=== PATIENT | male | born 1950 | race Caucasian/White ===

== ENCOUNTER 2019-01-15 06:37 | Day surgery (SDC) | payer OTHER ==
--- NOTE | 2019-01-14 15:09 | HP ---
CHIEF COMPLAINT: Major depressive disorder PCP: Dr. Concepcion Hawk, [facility] Primary psychiatrist: Dr. Singh Gallwoay, [facility] HISTORY OF PRESENT ILLNESS: 68 year-old male with a PMH significant for peripheral neuropathy, osteoporosis , umbilical hernia repair, and major depressive disorder. Patient first had ECT in 2010. He presents today for ECT. Recent event * none reported HOME MEDICATIONS: Home Medications Medication Instructions Recorded Aripiprazole [Abilify] 10 mg PO DAILY 01/14/19 Benztropine Mesylate [Cogentin -] 2 mg PO DAILY 01/14/19 Clonazepam 1 mg PO HS 01/14/19 Docusate Sodium [Colace] 100 - 300 mg PO HS PRN 01/14/19 Lamotrigine [Lamictal Xr] 50 mg PO HS 01/14/19 Lamotrigine [Lamictal Xr] 100 mg PO DAILY 01/14/19 Sennosides [Senna] 8.6 mg PO HS 01/14/19 REVIEW OF SYSTEMS CONSTITUTIONAL: Absent: fever, chills, diaphoresis, generalized weakness, malaise, loss of appetite, weight change HEENT: Absent: rhinorrhea, nasal congestion, throat pain, throat swelling, difficulty swallowing, mouth swelling, ear pain, eye pain, visual changes CARDIOVASCULAR: Absent: chest pain, syncope, palpitations, irregular heart rate, lightheadedness , peripheral edema RESPIRATORY: Absent: cough, shortness of breath, dyspnea with exertion, orthopnea, wheezing, stridor, hemoptysis GASTROINTESTINAL: Absent: abdominal pain, abdominal distension, nausea, vomiting, diarrhea, constipation, melena, hematochezia GENITOURINARY: Absent: dysuria, frequency, urgency, hesitancy, hematuria, flank pain, genital pain MUSCULOSKELETAL: Absent: myalgia, arthralgia, joint swelling, back pain, neck pain SKIN: Absent: rash, itching, pallor HEMATOLOGIC/IMMUNOLOGIC: Absent: easy bleeding, easy bruising, lymphadenopathy, frequent infections ENDOCRINE: Absent: unexplained weight gain, unexplained weight loss, heat intolerance, cold intolerance NEUROLOGIC: Absent: headache, focal weakness or paresthesias, dizziness, unsteady gait, seizure, mental status changes, bladder or bowel incontinence PHYSICAL EXAMINATION Vital Signs Temperature 98 F 01/15/19 06:49 Pulse Rate 47 L 01/15/19 06:49 Respiratory Rate 16 01/15/19 06:49 Blood Pressure 108/63 01/15/19 06:49 O2 Sat by Pulse Oximetry (%) 95 01/15/19 06:49 GENERAL: Awake, alert, and fully oriented, in no acute distress. HEAD: Normal with no signs of trauma. EYES: Pupils equal, round and reactive to light, sclera anicteric, conjunctiva clear. LUNGS: Breath sounds equal, clear to auscultation bilaterally. No wheezes, and no crackles. No accessory muscle use. HEART: Regular rate and rhythm, normal S1 and S2 ABDOMEN: Soft, nontender, not distended MUSCULOSKELETAL: Normal range of motion at all joints. No bony deformities or tenderness. No CVA tenderness. UPPER EXTREMITIES: 2+ pulses, warm, well-perfused. No cyanosis. No clubbing. No peripheral edema. LOWER EXTREMITIES: 2+ pulses, warm, well-perfused. No calf tenderness. No peripheral edema. NEUROLOGICAL: Cranial nerves II-XII intact. Normal speech. ASSESSMENT/PLAN: 68 year-old male with a PMH significant for peripheral neuropathy, osteoporosis , umbilical hernia repair, and major depressive disorder. Patient first had ECT in 2010. He presents today for ECT. Cardiac --no cardiac history --Revised Cardiac Risk Index for Pre-Operative Risk: 0 points, 0.4% risk of major cardiac event Pulmonary --no pulmonary history Neurological --no neurological or neurosurgical history; no history of trauma Anesthesia --no reported problems with anesthesia ECT is a low risk procedure. The relative benefits of the planned procedure outweigh the relative risks for this patient at this time. Visit type - Emergency Visit Emergency Visit: No - New Patient This patient is new to me today: Yes Date on this admission: 01/15/19 - Critical Care Critical Care patient: No
[2019-01-14 16:02] VITALS: BMI 29.0
[2019-01-15] MEDS ORDERED: ACETAMINOPHEN 325 MG TABLET (FP) PO PRN (08:03)
[2019-01-15] MEDS ORDERED: ONDANSETRON 4 MG/2 ML VIAL IVPUSH PRN (08:03)
[2019-01-15] MEDS ORDERED: LACTATED RINGERS SOLUTION 1,000 ML IV SCH (08:15)
[2019-01-15 08:57] VITALS: BP 110/66; PULSE 53; TEMP 98
== END 2019-01-15 08:55 | disposition home or self-care (01) ==
LOC: FECT 06:37
PROVIDERS: ATTEND Psychiatry & Neurology Psychiatry
PROC: GZB4ZZZ Other Electroconvulsive Therapy (ICD-10-PCS; principal; 2019-01-15 07:30)
DX: F33.2 Major depressive disorder, recurrent severe without psychotic features (principal); G62.9 Polyneuropathy, unspecified; M81.0 Age-related osteoporosis without current pathological fracture
CPT/HCPCS: 90870; 94760

== ENCOUNTER 2019-01-23 05:45 | Day surgery (SDC) | payer OTHER | END 2019-01-23 08:53 | disposition home or self-care (01) | LOC: FECT 05:45 | PROC: GZB4ZZZ Other Electroconvulsive Therapy (ICD-10-PCS; principal; 2019-01-23 07:45) | DX: F33.2 Major depressive disorder, recurrent severe without psychotic features (principal) ==

== ENCOUNTER 2019-01-27 06:37 | Day surgery (SDC) | payer OTHER | END 2019-01-27 09:20 | disposition home or self-care (01) | LOC: FECT 06:37 ==

== ENCOUNTER 2019-02-04 05:32 | Day surgery (SDC) | payer OTHER, BC ==
[2019-01-27 14:28] VITALS: BMI 29.0
[2019-02-04] MEDS ORDERED: LACTATED RINGERS SOLUTION 1,000 ML IV SCH (07:45)
[2019-02-04 08:34] VITALS: TEMP 97.7
[2019-02-04 08:52] VITALS: BP 101/68; PULSE 57
== END 2019-02-04 08:45 | disposition home or self-care (01) ==
LOC: FECT 05:32
PROVIDERS: ATTEND Psychiatry & Neurology Psychiatry
PROC: GZB4ZZZ Other Electroconvulsive Therapy (ICD-10-PCS; principal; 2019-02-04 07:30)
DX: F32.9 Major depressive disorder, single episode, unspecified (principal)
CPT/HCPCS: 90870; 94760

== ENCOUNTER 2019-02-10 05:42 | Day surgery (SDC) | payer OTHER, BC ==
[2019-02-04 16:20] VITALS: BMI 29.0
[2019-02-10] MEDS ORDERED: ONDANSETRON 4 MG/2 ML VIAL IVPUSH PRN (07:18)
[2019-02-10] MEDS ORDERED: oxyCODONE HCL 5 MG TABLET PO PRN (07:18)
[2019-02-10 08:55] VITALS: BP 110/77; PULSE 47; TEMP 98
== END 2019-02-10 09:00 | disposition home or self-care (01) ==
LOC: FECT 05:42
PROVIDERS: ATTEND Psychiatry & Neurology Psychiatry
PROC: GZB4ZZZ Other Electroconvulsive Therapy (ICD-10-PCS; principal; 2019-02-10 07:30)
DX: F32.9 Major depressive disorder, single episode, unspecified (principal)
CPT/HCPCS: 90870; 94760

== ENCOUNTER 2019-02-17 05:59 | Day surgery (SDC) | payer OTHER | END 2019-02-17 09:55 | disposition home or self-care (01) | LOC: FECT 05:59 ==

== ENCOUNTER 2019-02-25 05:42 | Day surgery (SDC) | payer OTHER ==
[2019-02-17 14:55] VITALS: BMI 29.0
[2019-02-25] MEDS ORDERED: ACETAMINOPHEN 325 MG TABLET (FP) PO PRN (07:44)
[2019-02-25] MEDS ORDERED: ONDANSETRON 4 MG/2 ML VIAL IVPUSH PRN (07:44)
[2019-02-25 08:33] VITALS: TEMP 97.6
[2019-02-25 08:49] VITALS: BP 110/68; PULSE 47
== END 2019-02-25 08:51 | disposition home or self-care (01) ==
LOC: FECT 05:42
PROVIDERS: ATTEND Psychiatry & Neurology Psychiatry
PROC: GZB4ZZZ Other Electroconvulsive Therapy (ICD-10-PCS; principal; 2019-02-25 07:45)
DX: F32.9 Major depressive disorder, single episode, unspecified (principal)
CPT/HCPCS: 90870; 94760

== ENCOUNTER 2019-03-12 05:41 | Day surgery (SDC) | payer OTHER, BC ==
[2019-03-05 11:24] VITALS: BMI 29.0
[2019-03-12 08:14] VITALS: TEMP 97.6
[2019-03-12 09:07] VITALS: BP 101/60; PULSE 55
== END 2019-03-12 08:20 | disposition home or self-care (01) ==
LOC: FECT 05:41
PROVIDERS: ATTEND Psychiatry & Neurology Psychiatry
PROC: GZB4ZZZ Other Electroconvulsive Therapy (ICD-10-PCS; principal; 2019-03-12 07:00)
DX: F32.9 Major depressive disorder, single episode, unspecified (principal)
CPT/HCPCS: 90870; 94760

== ENCOUNTER 2019-03-26 05:39 | Day surgery (SDC) | payer OTHER, BC ==
[2019-03-19 14:04] VITALS: BMI 29.0
[2019-03-26] MEDS ORDERED: LACTATED RINGERS SOLUTION 1,000 ML IV SCH (07:30)
[2019-03-26 09:04] VITALS: TEMP 97.6
[2019-03-26 09:34] VITALS: BP 112/67; PULSE 51
--- NOTE | 2019-03-26 18:07 | HP ---
CHIEF COMPLAINT: Major depressive disorder PCP: Dr. Concepcion Hawk, [facility] Primary psychiatrist: Dr. Singh Galloway, [facility] HISTORY OF PRESENT ILLNESS: 68 year-old male with a PMH significant for peripheral neuropathy, osteoporosis , umbilical hernia repair, and major depressive disorder. Patient first had ECT in 2010. He presents today for ECT. Recent events * none reported Allergies No Known Allergies Allergy (Verified 03/26/19 07:33) HOME MEDICATIONS: Home Medications Medication Instructions Recorded Aripiprazole [Abilify] 10 mg PO DAILY 01/14/19 Clonazepam 1 mg PO HS 01/14/19 Lamotrigine [Lamictal] 150 mg PO DAILY 03/26/19 REVIEW OF SYSTEMS CONSTITUTIONAL: Absent: fever, chills, diaphoresis, generalized weakness, malaise, loss of appetite, weight change HEENT: Absent: rhinorrhea, nasal congestion, throat pain, throat swelling, difficulty swallowing, mouth swelling, ear pain, eye pain, visual changes CARDIOVASCULAR: Absent: chest pain, syncope, palpitations, irregular heart rate, lightheadedness , peripheral edema RESPIRATORY: Absent: cough, shortness of breath, dyspnea with exertion, orthopnea, wheezing, stridor, hemoptysis GASTROINTESTINAL: Absent: abdominal pain, abdominal distension, nausea, vomiting, diarrhea, constipation, melena, hematochezia GENITOURINARY: Absent: dysuria, frequency, urgency, hesitancy, hematuria, flank pain, genital pain MUSCULOSKELETAL: Absent: myalgia, arthralgia, joint swelling, back pain, neck pain SKIN: Absent: rash, itching, pallor HEMATOLOGIC/IMMUNOLOGIC: Absent: easy bleeding, easy bruising, lymphadenopathy, frequent infections ENDOCRINE: Absent: unexplained weight gain, unexplained weight loss, heat intolerance, cold intolerance NEUROLOGIC: Absent: headache, focal weakness or paresthesias, dizziness, unsteady gait, seizure, mental status changes, bladder or bowel incontinence PHYSICAL EXAMINATION Vital Signs - 24 hr 03/26/19 03/26/19 03/26/19 07:35 08:31 08:35 Temperature 98.4 F Pulse Rate 46 L 52 L 42 L Respiratory 16 18 16 Rate Blood Pressure 103/68 148/52 L 95/46 L O2 Sat by Pulse 94 L 98 100 Oximetry (%) 08/01/19 08/01/19 08/01/19 08:40 08:45 08:50 Temperature Pulse Rate 48 L 46 L 42 L Respiratory 14 18 20 Rate Blood Pressure 93/50 L 94/52 L 102/74 O2 Sat by Pulse 95 95 97 Oximetry (%) 03/26/19 03/26/19 03/26/19 08:55 09:25 09:30 Temperature 97.6 F 97.6 F 97.6 F Pulse Rate 50 L 51 L 51 L Respiratory 18 18 18 Rate Blood Pressure 108/63 112/67 112/67 O2 Sat by Pulse 95 95 Oximetry (%) GENERAL: Awake, alert, and fully oriented, in no acute distress. HEAD: Normal with no signs of trauma. EYES: Pupils equal, round and reactive to light, sclera anicteric, conjunctiva clear. LUNGS: Breath sounds equal, clear to auscultation bilaterally. No wheezes, and no crackles. No accessory muscle use. HEART: Regular rate and rhythm, normal S1 and S2 ABDOMEN: Soft, nontender, not distended MUSCULOSKELETAL: Normal range of motion at all joints. No bony deformities or tenderness. No CVA tenderness. UPPER EXTREMITIES: 2+ pulses, warm, well-perfused. No cyanosis. No clubbing. No peripheral edema. LOWER EXTREMITIES: 2+ pulses, warm, well-perfused. No calf tenderness. No peripheral edema. NEUROLOGICAL: Cranial nerves II-XII intact. Normal speech. ASSESSMENT/PLAN: 68 year-old male with a PMH significant for peripheral neuropathy, osteoporosis , umbilical hernia repair, and major depressive disorder. He presents today for ECT. Cardiac --no cardiac history --Revised Cardiac Risk Index for Pre-Operative Risk: 0 points, 0.4% risk of major cardiac event Pulmonary --no pulmonary history Neurological --no neurological or neurosurgical history; no history of trauma Anesthesia --no reported problems with anesthesia ECT is a low risk procedure. The relative benefits of the planned procedure outweigh the relative risks for this patient at this time. Visit type - Emergency Visit Emergency Visit: No - New Patient This patient is new to me today: Yes Date on this admission: 03/26/19 - Critical Care Critical Care patient: No
== END 2019-03-26 09:30 | disposition home or self-care (01) ==
LOC: FECT 05:39
PROVIDERS: ATTEND Psychiatry & Neurology Psychiatry
PROC: GZB4ZZZ Other Electroconvulsive Therapy (ICD-10-PCS; principal; 2019-03-26 07:00)
DX: F32.9 Major depressive disorder, single episode, unspecified (principal)
CPT/HCPCS: 90870; 94760

== ENCOUNTER 2019-04-09 05:41 | Day surgery (SDC) | payer OTHER, BC | END 2019-04-09 08:21 | disposition home or self-care (01) | LOC: FECT 05:41 ==

== ENCOUNTER 2019-05-07 05:43 | Day surgery (SDC) | payer OTHER, BC ==
[2019-05-07 07:06] VITALS: TEMP 98.4; BMI 29.0
--- NOTE | 2019-05-07 07:40 | HP ---
CHIEF COMPLAINT: Major depressive disorder PCP: Dr. Concepcion Hawk, [facility] Primary psychiatrist: Dr. Singh Galloway, [facility] HISTORY OF PRESENT ILLNESS: 68 year-old male with a PMH significant for peripheral neuropathy, osteoporosis , umbilical hernia repair, and major depressive disorder. Patient first had ECT in 2010. He presents today for ECT. Recent events * none reported Allergies No Known Allergies Allergy (Verified 03/26/19 07:33) HOME MEDICATIONS: Home Medications Medication Instructions Recorded Aripiprazole [Abilify] 10 mg PO DAILY 01/14/19 Clonazepam 1 mg PO HS 01/14/19 Lamotrigine [Lamictal] 75 mg PO DAILY 03/26/19 REVIEW OF SYSTEMS CONSTITUTIONAL: Absent: fever, chills, diaphoresis, generalized weakness, malaise, loss of appetite, weight change HEENT: Absent: rhinorrhea, nasal congestion, throat pain, throat swelling, difficulty swallowing, mouth swelling, ear pain, eye pain, visual changes CARDIOVASCULAR: Absent: chest pain, syncope, palpitations, irregular heart rate, lightheadedness , peripheral edema RESPIRATORY: Absent: cough, shortness of breath, dyspnea with exertion, orthopnea, wheezing, stridor, hemoptysis GASTROINTESTINAL: Absent: abdominal pain, abdominal distension, nausea, vomiting, diarrhea, constipation, melena, hematochezia GENITOURINARY: Absent: dysuria, frequency, urgency, hesitancy, hematuria, flank pain, genital pain MUSCULOSKELETAL: Absent: myalgia, arthralgia, joint swelling, back pain, neck pain SKIN: Absent: rash, itching, pallor HEMATOLOGIC/IMMUNOLOGIC: Absent: easy bleeding, easy bruising, lymphadenopathy, frequent infections ENDOCRINE: Absent: unexplained weight gain, unexplained weight loss, heat intolerance, cold intolerance NEUROLOGIC: Absent: headache, focal weakness or paresthesias, dizziness, unsteady gait, seizure, mental status changes, bladder or bowel incontinence PHYSICAL EXAMINATION Vital Signs - 24 hr 05/07/19 07:00 Temperature 98.4 F Pulse Rate 46 L Respiratory 18 Rate Blood Pressure 101/60 O2 Sat by Pulse 99 Oximetry (%) GENERAL: Awake, alert, and fully oriented, in no acute distress. HEAD: Normal with no signs of trauma. EYES: Pupils equal, round and reactive to light, sclera anicteric, conjunctiva clear. LUNGS: Breath sounds equal, clear to auscultation bilaterally. No wheezes, and no crackles. No accessory muscle use. HEART: Regular rate and rhythm, normal S1 and S2 ABDOMEN: Soft, nontender, not distended MUSCULOSKELETAL: Normal range of motion at all joints. No bony deformities or tenderness. No CVA tenderness. UPPER EXTREMITIES: 2+ pulses, warm, well-perfused. No cyanosis. No clubbing. No peripheral edema. LOWER EXTREMITIES: 2+ pulses, warm, well-perfused. No calf tenderness. No peripheral edema. NEUROLOGICAL: Cranial nerves II-XII intact. Normal speech. ASSESSMENT/PLAN: 68 year-old male with a PMH significant for peripheral neuropathy, osteoporosis , umbilical hernia repair, and major depressive disorder. He presents today for ECT. Cardiac --no cardiac history --Revised Cardiac Risk Index for Pre-Operative Risk: 0 points, 0.4% risk of major cardiac event Pulmonary --no pulmonary history Neurological --no neurological or neurosurgical history; no history of trauma Anesthesia --no reported problems with anesthesia ECT is a low risk procedure. The relative benefits of the planned procedure outweigh the relative risks for this patient at this time. Visit type - Emergency Visit Emergency Visit: No - New Patient This patient is new to me today: Yes Date on this admission: 05/07/19 - Critical Care Critical Care patient: No
[2019-05-07 09:01] VITALS: BP 106/56; PULSE 50
== END 2019-05-07 09:05 | disposition home or self-care (01) ==
LOC: FECT 05:43
PROVIDERS: ATTEND Psychiatry & Neurology Psychiatry
PROC: GZB4ZZZ Other Electroconvulsive Therapy (ICD-10-PCS; principal; 2019-05-07 07:00)
DX: F32.9 Major depressive disorder, single episode, unspecified (principal)
CPT/HCPCS: 90870; 94760

== ENCOUNTER 2019-05-28 05:43 | Day surgery (SDC) | payer OTHER, BC ==
[2019-05-28 06:35] VITALS: BMI 29.0
[2019-05-28 08:51] VITALS: TEMP 97.7
[2019-05-28 08:52] VITALS: BP 102/61; PULSE 53
[2019-05-28] MEDS ORDERED: ACETAMINOPHEN 325 MG TABLET (FP) PO PRN (08:57)
[2019-05-28] MEDS ORDERED: ONDANSETRON 4 MG/2 ML VIAL IVPUSH PRN (08:57)
== END 2019-05-28 08:55 | disposition home or self-care (01) ==
LOC: FECT 05:43
PROVIDERS: ATTEND Psychiatry & Neurology Psychiatry
PROC: GZB4ZZZ Other Electroconvulsive Therapy (ICD-10-PCS; principal; 2019-05-28 07:30)
DX: F32.9 Major depressive disorder, single episode, unspecified (principal)
CPT/HCPCS: 90870; 94760

== ENCOUNTER 2019-06-02 05:49 | Day surgery (SDC) | payer OTHER, BC ==
[2019-05-28 10:47] VITALS: BMI 29.0
[2019-06-02] MEDS ORDERED: oxyCODONE HCL 5 MG TABLET PO PRN (06:45)
[2019-06-02] MEDS ORDERED: ACETAMINOPHEN 325 MG TABLET (FP) PO PRN (06:45)
[2019-06-02 08:51] VITALS: TEMP 97.9
[2019-06-02 08:59] VITALS: BP 102/66; PULSE 51
== END 2019-06-02 09:00 | disposition home or self-care (01) ==
LOC: FECT 05:49
PROVIDERS: ATTEND Psychiatry & Neurology Psychiatry
PROC: GZB4ZZZ Other Electroconvulsive Therapy (ICD-10-PCS; principal; 2019-06-02 07:30)
DX: F33.2 Major depressive disorder, recurrent severe without psychotic features (principal)
CPT/HCPCS: 90870

== ENCOUNTER 2019-06-10 05:44 | Day surgery (SDC) | payer OTHER, BC ==
[2019-05-28 10:51] VITALS: BMI 29.0
--- NOTE | 2019-06-10 07:30 | HP ---
CHIEF COMPLAINT: Major depressive disorder PCP: Dr. Concepcion Hawk, [facility] Primary psychiatrist: Dr. Singh Galloway, [facility] HISTORY OF PRESENT ILLNESS: 68 year-old male with a PMH significant for peripheral neuropathy, osteoporosis , umbilical hernia repair, and major depressive disorder. Patient first had ECT in 2010. He presents today for ECT. Recent events * Had a stem cell injection into his spine/buttocks (?) for neuropathy by Dr. Sebastian, [place]; completed a course of PO antibiotics following procedure; no apparent complications PAST MEDICAL HISTORY: Peripheral neuropathy Osteoporosis Major depressive disorder PAST SURGICAL HISTORY: Umbilical hernia repair Allergies No Known Allergies Allergy (Verified 05/28/19 10:43) HOME MEDICATIONS: Home Medications Medication Instructions Recorded Aripiprazole [Abilify] 10 mg PO DAILY 01/14/19 Clonazepam 1 mg PO HS 01/14/19 Lamotrigine [Lamictal] 75 mg PO DAILY 03/26/19 REVIEW OF SYSTEMS CONSTITUTIONAL: Absent: fever, chills, diaphoresis, generalized weakness, malaise, loss of appetite, weight change HEENT: Absent: rhinorrhea, nasal congestion, throat pain, throat swelling, difficulty swallowing, mouth swelling, ear pain, eye pain, visual changes CARDIOVASCULAR: Absent: chest pain, syncope, palpitations, irregular heart rate, lightheadedness , peripheral edema RESPIRATORY: Absent: cough, shortness of breath, dyspnea with exertion, orthopnea, wheezing, stridor, hemoptysis GASTROINTESTINAL: Absent: abdominal pain, abdominal distension, nausea, vomiting, diarrhea, constipation, melena, hematochezia GENITOURINARY: Absent: dysuria, frequency, urgency, hesitancy, hematuria, flank pain, genital pain MUSCULOSKELETAL: Absent: myalgia, arthralgia, joint swelling, back pain, neck pain SKIN: Absent: rash, itching, pallor HEMATOLOGIC/IMMUNOLOGIC: Absent: easy bleeding, easy bruising, lymphadenopathy, frequent infections ENDOCRINE: Absent: unexplained weight gain, unexplained weight loss, heat intolerance, cold intolerance NEUROLOGIC: Absent: headache, focal weakness or paresthesias, dizziness, unsteady gait, seizure, mental status changes, bladder or bowel incontinence PHYSICAL EXAMINATION Vital Signs - 24 hr 06/10/19 07:02 Temperature 98.1 F Pulse Rate 48 L Respiratory 18 Rate Blood Pressure 97/58 L O2 Sat by Pulse 98 Oximetry (%) GENERAL: Awake, alert, and fully oriented, in no acute distress. HEAD: Normal with no signs of trauma. EYES: Pupils equal, round and reactive to light, sclera anicteric, conjunctiva clear. LUNGS: Breath sounds equal, clear to auscultation bilaterally. No wheezes, and no crackles. No accessory muscle use. HEART: Regular rate and rhythm, normal S1 and S2 ABDOMEN: Soft, nontender, not distended MUSCULOSKELETAL: Normal range of motion at all joints. No bony deformities or tenderness. No CVA tenderness. UPPER EXTREMITIES: 2+ pulses, warm, well-perfused. No cyanosis. No clubbing. No peripheral edema. LOWER EXTREMITIES: 2+ pulses, warm, well-perfused. No calf tenderness. No peripheral edema. NEUROLOGICAL: Cranial nerves II-XII intact. Normal speech. ASSESSMENT/PLAN: 68 year-old male with a PMH significant for peripheral neuropathy, osteoporosis , umbilical hernia repair, and major depressive disorder. He presents today for ECT. Cardiac --no cardiac history --Revised Cardiac Risk Index for Pre-Operative Risk: 0 points, 0.4% risk of major cardiac event Pulmonary --no pulmonary history Neurological --no neurological or neurosurgical history; no history of trauma Anesthesia --no reported problems with anesthesia ECT is a low risk procedure. The relative benefits of the planned procedure outweigh the relative risks for this patient at this time. Visit type - Emergency Visit Emergency Visit: No - New Patient This patient is new to me today: Yes Date on this admission: 06/10/19 - Critical Care Critical Care patient: No
[2019-06-10 09:17] VITALS: BP 119/78; PULSE 55; TEMP 98
[2019-06-10 09:17] LABS: BASO % 0.8 % (0-2.0); EOS % 1.9 % (0-4.5); HEMATOCRIT 40.5 % (35.4-49); HEMOGLOBIN 13.2 GM/dl (11.7-16.9); LYMPH % 21.3 % (8-40); MCH 29.4 pg (25.7-33.7); MCHC 32.6 g/dl (32.0-35.9); MEAN PLT VOLUME 8.3 fl (7.5-11.1); MONO % 8.6 % (3.8-10.2); NEUT % 67.4 % (42.8-82.8); PLATELET COUNT 277 K/MM3 (134-434); RDW 15.3 % (11.9-15.9)
[2019-06-10 09:25] LABS: ALBUMIN 3.3 g/dl (3.4-5.0); BILIRUBIN,TOTAL 0.7 mg/dl (0.2-1); CALCIUM 8.9 mg/dl (8.5-10); CREATININE 0.8 mg/dl (0.55-1.3); POTASSIUM 4.2 mmol/L (3.5-5.1); TOT PROT 5.3 g/dl (6.4-8.2)
--- NOTE | 2019-06-10 10:39 | EKG ---
Test Reason : Blood Pressure : / mmHG Vent. Rate : 051 BPM Atrial Rate : 051 BPM P-R Int : 158 ms QRS Dur : 078 ms QT Int : 430 ms P-R-T Axes : 013 013 006 degrees QTc Int : 396 ms SINUS BRADYCARDIA CANNOT RULE OUT ANTERIOR INFARCT , AGE UNDETERMINED ABNORMAL ECG NO PREVIOUS ECGS AVAILABLE Confirmed by RENATE BLEVINS, IRAM ([id number]) on 06/10/2019 10:38:43 AM Referred By: Nick Brush Confirmed By:IRAM DEWITT MD
== END 2019-06-10 09:20 | disposition home or self-care (01) ==
LOC: FECT 05:44
PROVIDERS: ATTEND Psychiatry & Neurology Psychiatry
PROC: GZB4ZZZ Other Electroconvulsive Therapy (ICD-10-PCS; principal; 2019-06-10 07:15)
DX: F32.9 Major depressive disorder, single episode, unspecified (principal)
CPT/HCPCS: 36415; 80053; 85025; 90870; 93005; 94760

== ENCOUNTER 2019-06-12 05:50 | Day surgery (SDC) | payer OTHER, BC ==
[2019-06-12 06:52] VITALS: BMI 29.0
[2019-06-12] MEDS ORDERED: ONDANSETRON 4 MG/2 ML VIAL IVPUSH PRN (07:37)
[2019-06-12] MEDS ORDERED: PROMETHAZINE HCL 25 MG/1 ML VIAL IVPUSH PRN (07:37)
[2019-06-12] MEDS ORDERED: ACETAMINOPHEN 500 MG TABLET (FP) PO PRN (07:37)
[2019-06-12] MEDS ORDERED: LACTATED RINGERS SOLUTION 1,000 ML IV SCH (07:45)
[2019-06-12 09:34] VITALS: TEMP 98.2
[2019-06-12 09:37] VITALS: BP 110/56; PULSE 64
== END 2019-06-12 09:00 | disposition home or self-care (01) ==
LOC: FECT 05:50
PROVIDERS: ATTEND Psychiatry & Neurology Psychiatry
PROC: GZB4ZZZ Other Electroconvulsive Therapy (ICD-10-PCS; principal; 2019-06-12 07:15)
DX: F32.9 Major depressive disorder, single episode, unspecified (principal)
CPT/HCPCS: 90870; 94760

== ENCOUNTER 2019-06-17 06:28 | Day surgery (SDC) | payer OTHER, BC ==
[2019-06-12 12:39] VITALS: BMI 29.0
[2019-06-17 08:20] VITALS: TEMP 97.6
[2019-06-17 08:43] VITALS: BP 110/61; PULSE 53
== END 2019-06-17 08:45 | disposition home or self-care (01) ==
LOC: FECT 06:28
PROVIDERS: ATTEND Psychiatry & Neurology Psychiatry
PROC: GZB4ZZZ Other Electroconvulsive Therapy (ICD-10-PCS; principal; 2019-06-17 07:15)
DX: F32.9 Major depressive disorder, single episode, unspecified (principal)
CPT/HCPCS: 90870; 94760

== ENCOUNTER 2019-06-19 05:37 | Day surgery (SDC) | payer OTHER, BC ==
[2019-06-18 08:02] VITALS: BMI 29.0
[2019-06-19 07:58] VITALS: TEMP 97.8
[2019-06-19 08:19] VITALS: BP 110/65; PULSE 50
== END 2019-06-19 08:20 | disposition home or self-care (01) ==
LOC: FECT 05:37
PROVIDERS: ATTEND Psychiatry & Neurology Psychiatry
PROC: GZB4ZZZ Other Electroconvulsive Therapy (ICD-10-PCS; principal; 2019-06-19 07:15)
DX: F33.2 Major depressive disorder, recurrent severe without psychotic features (principal)
CPT/HCPCS: 90870; 94760

== ENCOUNTER 2019-06-24 05:47 | Day surgery (SDC) | payer OTHER, BC ==
[2019-06-19 08:57] VITALS: BMI 29.0
[2019-06-24] MEDS ORDERED: ACETAMINOPHEN 500 MG TABLET (FP) PO PRN (08:00)
[2019-06-24] MEDS ORDERED: LACTATED RINGERS SOLUTION 1,000 ML IV SCH (08:00)
[2019-06-24] MEDS ORDERED: PROMETHAZINE HCL 25 MG/1 ML VIAL IVPUSH PRN (08:00)
[2019-06-24 08:05] VITALS: TEMP 96.5
[2019-06-24 08:53] VITALS: BP 108/64; PULSE 55
== END 2019-06-24 08:57 | disposition home or self-care (01) ==
LOC: FECT 05:47
PROVIDERS: ATTEND Psychiatry & Neurology Psychiatry
PROC: GZB4ZZZ Other Electroconvulsive Therapy (ICD-10-PCS; principal; 2019-06-24 07:30)
DX: F32.9 Major depressive disorder, single episode, unspecified (principal)
CPT/HCPCS: 90870; 94760

== ENCOUNTER 2019-07-03 05:39 | Day surgery (SDC) | payer OTHER, BC ==
[2019-07-03 06:33] VITALS: BMI 29.0
[2019-07-03] MEDS ORDERED: LACTATED RINGERS SOLUTION 1,000 ML IV SCH (08:00)
[2019-07-03 08:30] VITALS: BP 90/57; PULSE 55; TEMP 97.9
== END 2019-07-03 08:34 | disposition home or self-care (01) ==
LOC: FECT 05:39
PROVIDERS: ATTEND Psychiatry & Neurology Psychiatry
PROC: GZB4ZZZ Other Electroconvulsive Therapy (ICD-10-PCS; principal; 2019-07-03 07:45)
DX: F33.2 Major depressive disorder, recurrent severe without psychotic features (principal)
CPT/HCPCS: 90870; 94760

== ENCOUNTER 2019-07-10 05:31 | Day surgery (SDC) | payer OTHER, BC ==
[2019-07-10 06:46] VITALS: BMI 30.5
[2019-07-10 08:20] VITALS: BP 109/62; PULSE 55; TEMP 98.1
--- NOTE | 2019-07-10 09:05 | HP ---
CHIEF COMPLAINT: Major depressive disorder PCP: Dr. Concepcion Hawk, [facility] Primary psychiatrist: Dr. Singh Galloway, [facility] HISTORY OF PRESENT ILLNESS: 68 year-old male with a PMH significant for peripheral neuropathy, osteoporosis , umbilical hernia repair, and major depressive disorder. Patient first had ECT in 2010. He presents today for ECT. Recent events * None reported PAST MEDICAL HISTORY: Peripheral neuropathy Osteoporosis Major depressive disorder PAST SURGICAL HISTORY: Umbilical hernia repair Allergies No Known Allergies Allergy (Verified 05/28/19 10:43) Allergies No Known Allergies Allergy (Verified 06/19/19 08:39) HOME MEDICATIONS: Home Medications Medication Instructions Recorded Aripiprazole [Abilify] 10 mg PO DAILY 01/14/19 Clonazepam 1 mg PO HS 01/14/19 Lamotrigine [Lamictal] 75 mg PO DAILY 03/26/19 REVIEW OF SYSTEMS CONSTITUTIONAL: Absent: fever, chills, diaphoresis, generalized weakness, malaise, loss of appetite, weight change HEENT: Absent: rhinorrhea, nasal congestion, throat pain, throat swelling, difficulty swallowing, mouth swelling, ear pain, eye pain, visual changes CARDIOVASCULAR: Absent: chest pain, syncope, palpitations, irregular heart rate, lightheadedness , peripheral edema RESPIRATORY: Absent: cough, shortness of breath, dyspnea with exertion, orthopnea, wheezing, stridor, hemoptysis GASTROINTESTINAL: Absent: abdominal pain, abdominal distension, nausea, vomiting, diarrhea, constipation, melena, hematochezia GENITOURINARY: Absent: dysuria, frequency, urgency, hesitancy, hematuria, flank pain, genital pain MUSCULOSKELETAL: Absent: myalgia, arthralgia, joint swelling, back pain, neck pain SKIN: Absent: rash, itching, pallor HEMATOLOGIC/IMMUNOLOGIC: Absent: easy bleeding, easy bruising, lymphadenopathy, frequent infections ENDOCRINE: Absent: unexplained weight gain, unexplained weight loss, heat intolerance, cold intolerance NEUROLOGIC: Absent: headache, focal weakness or paresthesias, dizziness, unsteady gait, seizure, mental status changes, bladder or bowel incontinence PHYSICAL EXAMINATION Vital Signs - 24 hr 07/10/19 07/10/19 07/10/19 07:30 07:45 08:15 Temperature 97.7 F 97.8 F 98.1 F Pulse Rate 55 L 51 L 55 L Respiratory 16 16 16 Rate Blood Pressure 106/49 L 106/61 109/62 O2 Sat by Pulse 99 98 99 Oximetry (%) 07/10/19 08:32 Temperature 98.1 F Pulse Rate 55 L Respiratory 16 Rate Blood Pressure 109/62 O2 Sat by Pulse Oximetry (%) GENERAL: Awake, alert, and fully oriented, in no acute distress. HEAD: Normal with no signs of trauma. EYES: Pupils equal, round and reactive to light, sclera anicteric, conjunctiva clear. LUNGS: Breath sounds equal, clear to auscultation bilaterally. No wheezes, and no crackles. No accessory muscle use. HEART: Regular rate and rhythm, normal S1 and S2 ABDOMEN: Soft, nontender, not distended MUSCULOSKELETAL: Normal range of motion at all joints. No bony deformities or tenderness. No CVA tenderness. UPPER EXTREMITIES: 2+ pulses, warm, well-perfused. No cyanosis. No clubbing. No peripheral edema. LOWER EXTREMITIES: 2+ pulses, warm, well-perfused. No calf tenderness. No peripheral edema. NEUROLOGICAL: Cranial nerves II-XII intact. Normal speech. ASSESSMENT/PLAN: 68 year-old male with a PMH significant for peripheral neuropathy, osteoporosis , umbilical hernia repair, and major depressive disorder. He presents today for ECT. Cardiac --no cardiac history --Revised Cardiac Risk Index for Pre-Operative Risk: 0 points, 0.4% risk of major cardiac event Pulmonary --no pulmonary history Neurological --no neurological or neurosurgical history; no history of trauma Anesthesia --no reported problems with anesthesia ECT is a low risk procedure. The relative benefits of the planned procedure outweigh the relative risks for this patient at this time. Visit type - Emergency Visit Emergency Visit: No - New Patient This patient is new to me today: Yes Date on this admission: 07/10/19 - Critical Care Critical Care patient: No
== END 2019-07-10 08:34 | disposition home or self-care (01) ==
LOC: FECT 05:31
PROVIDERS: ATTEND Psychiatry & Neurology Psychiatry
PROC: GZB4ZZZ Other Electroconvulsive Therapy (ICD-10-PCS; principal; 2019-07-10 08:00)
DX: F32.9 Major depressive disorder, single episode, unspecified (principal)
CPT/HCPCS: 90870; 94760

== ENCOUNTER 2019-07-17 05:46 | Day surgery (SDC) | payer OTHER, BC ==
[2019-07-13 09:08] VITALS: BMI 30.5
[2019-07-17 10:10] VITALS: TEMP 98
[2019-07-17 10:15] VITALS: BP 108/65; PULSE 49
== END 2019-07-17 10:20 | disposition home or self-care (01) ==
LOC: FECT 05:46
PROVIDERS: ATTEND Psychiatry & Neurology Psychiatry
PROC: GZB4ZZZ Other Electroconvulsive Therapy (ICD-10-PCS; principal; 2019-07-17 08:15)
DX: F33.2 Major depressive disorder, recurrent severe without psychotic features (principal)
CPT/HCPCS: 90870; 94760

== ENCOUNTER 2019-07-22 05:52 | Day surgery (SDC) | payer OTHER, BC ==
[2019-07-22 07:06] VITALS: TEMP 97.5; BMI 30.5
[2019-07-22 08:56] VITALS: BP 106/63; PULSE 54
== END 2019-07-22 09:00 | disposition home or self-care (01) ==
LOC: FECT 05:52
PROVIDERS: ATTEND Psychiatry & Neurology Psychiatry
PROC: GZB4ZZZ Other Electroconvulsive Therapy (ICD-10-PCS; principal; 2019-07-22 08:30)
DX: F33.2 Major depressive disorder, recurrent severe without psychotic features (principal)
CPT/HCPCS: 90870; 94760

== ENCOUNTER 2019-07-29 05:40 | Day surgery (SDC) | payer OTHER, BC ==
[2019-07-29 06:47] VITALS: TEMP 98; BMI 30.5
[2019-07-29 08:52] VITALS: BP 128/62; PULSE 57
== END 2019-07-29 08:50 | disposition home or self-care (01) ==
LOC: FECT 05:40
PROVIDERS: ATTEND Psychiatry & Neurology Psychiatry
PROC: GZB4ZZZ Other Electroconvulsive Therapy (ICD-10-PCS; principal; 2019-07-29 07:15)
DX: F32.9 Major depressive disorder, single episode, unspecified (principal)
CPT/HCPCS: 90870; 94760

== ENCOUNTER 2019-08-05 05:46 | Day surgery (SDC) | payer OTHER, BC ==
[2019-08-05 06:54] VITALS: TEMP 97.7; BMI 30.5
[2019-08-05] MEDS ORDERED: ACETAMINOPHEN 325 MG TABLET (FP) PO PRN (08:12)
[2019-08-05] MEDS ORDERED: ONDANSETRON 4 MG/2 ML VIAL IVPUSH PRN (08:12)
[2019-08-05] MEDS ORDERED: LACTATED RINGERS SOLUTION 1,000 ML IV SCH (08:15)
[2019-08-05 09:12] VITALS: BP 108/61; PULSE 53
== END 2019-08-05 09:32 | disposition home or self-care (01) ==
LOC: FECT 05:46
PROVIDERS: ATTEND Psychiatry & Neurology Psychiatry
PROC: GZB4ZZZ Other Electroconvulsive Therapy (ICD-10-PCS; principal; 2019-08-05 07:00)
DX: F32.9 Major depressive disorder, single episode, unspecified (principal)
CPT/HCPCS: 90870; 94760

== ENCOUNTER 2019-08-12 06:42 | Day surgery (SDC) | payer OTHER, BC ==
[2019-08-12 06:56] VITALS: BMI 30.5
[2019-08-12] MEDS ORDERED: LACTATED RINGERS SOLUTION 1,000 ML IV SCH (07:00)
[2019-08-12 08:47] VITALS: TEMP 97.8
[2019-08-12 09:04] VITALS: BP 104/67; PULSE 62
--- NOTE | 2019-08-12 15:05 | HP ---
CHIEF COMPLAINT: Major depressive disorder PCP: Dr. Concepcion Hawk, [facility] Primary psychiatrist: Dr. Singh Galloway, [facility] HISTORY OF PRESENT ILLNESS: 68 year-old male with a PMH significant for peripheral neuropathy, osteoporosis , umbilical hernia repair, and major depressive disorder. Patient first had ECT in 2010. He presents today for ECT. Recent events * None reported PAST MEDICAL HISTORY: Peripheral neuropathy Osteoporosis Major depressive disorder PAST SURGICAL HISTORY: Umbilical hernia repair Allergies No Known Allergies Allergy (Verified 06/19/19 08:39) HOME MEDICATIONS: Home Medications Medication Instructions Recorded Aripiprazole [Abilify] 10 mg PO DAILY 01/14/19 Clonazepam 1 mg PO HS 01/14/19 Lamotrigine [Lamictal] 75 mg PO DAILY 03/26/19 REVIEW OF SYSTEMS CONSTITUTIONAL: Absent: fever, chills, diaphoresis, generalized weakness, malaise, loss of appetite, weight change HEENT: Absent: rhinorrhea, nasal congestion, throat pain, throat swelling, difficulty swallowing, mouth swelling, ear pain, eye pain, visual changes CARDIOVASCULAR: Absent: chest pain, syncope, palpitations, irregular heart rate, lightheadedness , peripheral edema RESPIRATORY: Absent: cough, shortness of breath, dyspnea with exertion, orthopnea, wheezing, stridor, hemoptysis GASTROINTESTINAL: Absent: abdominal pain, abdominal distension, nausea, vomiting, diarrhea, constipation, melena, hematochezia GENITOURINARY: Absent: dysuria, frequency, urgency, hesitancy, hematuria, flank pain, genital pain MUSCULOSKELETAL: Absent: myalgia, arthralgia, joint swelling, back pain, neck pain SKIN: Absent: rash, itching, pallor HEMATOLOGIC/IMMUNOLOGIC: Absent: easy bleeding, easy bruising, lymphadenopathy, frequent infections ENDOCRINE: Absent: unexplained weight gain, unexplained weight loss, heat intolerance, cold intolerance NEUROLOGIC: Absent: headache, focal weakness or paresthesias, dizziness, unsteady gait, seizure, mental status changes, bladder or bowel incontinence PHYSICAL EXAMINATION Vital Signs - 24 hr 08/12/19 08/12/19 08/12/19 06:54 07:55 08:00 Temperature 97.7 F Pulse Rate 56 L 75 49 L Respiratory 18 16 13 Rate Blood Pressure 109/61 100/62 105/49 L O2 Sat by Pulse 96 100 98 Oximetry (%) 08/12/19 08/12/19 08/12/19 08:05 08:10 08:15 Temperature Pulse Rate 54 L 47 L 56 L Respiratory 17 17 16 Rate Blood Pressure 109/61 107/66 105/62 O2 Sat by Pulse 98 98 98 Oximetry (%) 08/12/19 08/12/19 08/12/19 08:34 09:03 09:05 Temperature 97.8 F 97.8 F Pulse Rate 52 L 62 62 Respiratory 18 18 18 Rate Blood Pressure 94/50 L 104/67 104/67 O2 Sat by Pulse 96 96 Oximetry (%) GENERAL: Awake, alert, and fully oriented, in no acute distress. HEAD: Normal with no signs of trauma. EYES: Pupils equal, round and reactive to light, sclera anicteric, conjunctiva clear. LUNGS: Breath sounds equal, clear to auscultation bilaterally. No wheezes, and no crackles. No accessory muscle use. HEART: Regular rate and rhythm, normal S1 and S2 ABDOMEN: Soft, nontender, not distended MUSCULOSKELETAL: Normal range of motion at all joints. No bony deformities or tenderness. No CVA tenderness. UPPER EXTREMITIES: 2+ pulses, warm, well-perfused. No cyanosis. No clubbing. No peripheral edema. LOWER EXTREMITIES: 2+ pulses, warm, well-perfused. No calf tenderness. No peripheral edema. NEUROLOGICAL: Cranial nerves II-XII intact. Normal speech. ASSESSMENT/PLAN: 68 year-old male with a PMH significant for peripheral neuropathy, osteoporosis , umbilical hernia repair, and major depressive disorder. He presents today for ECT. Cardiac --no cardiac history --Revised Cardiac Risk Index for Pre-Operative Risk: 0 points, 0.4% risk of major cardiac event Pulmonary --no pulmonary history Neurological --no neurological or neurosurgical history; no history of trauma Anesthesia --no reported problems with anesthesia ECT is a low risk procedure. The relative benefits of the planned procedure outweigh the relative risks for this patient at this time. Visit type - Emergency Visit Emergency Visit: No - New Patient This patient is new to me today: Yes Date on this admission: 08/12/19 - Critical Care Critical Care patient: No
== END 2019-08-12 09:06 | disposition home or self-care (01) ==
LOC: FECT 06:42
PROVIDERS: ATTEND Psychiatry & Neurology Psychiatry
PROC: GZB4ZZZ Other Electroconvulsive Therapy (ICD-10-PCS; principal; 2019-08-12 07:00)
DX: F33.2 Major depressive disorder, recurrent severe without psychotic features (principal)
CPT/HCPCS: 90870; 94760

== ENCOUNTER 2019-09-09 05:51 | Day surgery (SDC) | payer OTHER, BC ==
[2019-09-09 06:20] VITALS: TEMP 97.9; BMI 30.5
[2019-09-09 08:41] VITALS: BP 117/71; PULSE 51
== END 2019-09-09 08:35 | disposition home or self-care (01) ==
LOC: FECT 05:51
PROVIDERS: ATTEND Psychiatry & Neurology Psychiatry
PROC: GZB4ZZZ Other Electroconvulsive Therapy (ICD-10-PCS; principal; 2019-09-09 07:00)
DX: F32.9 Major depressive disorder, single episode, unspecified (principal)
CPT/HCPCS: 90870; 94760

== ENCOUNTER 2019-09-25 05:55 | Day surgery (SDC) | payer OTHER, BC ==
[2019-09-25 07:12] VITALS: BMI 30.5
[2019-09-25] MEDS ORDERED: ONDANSETRON 4 MG/2 ML VIAL IVPUSH PRN (09:40)
[2019-09-25] MEDS ORDERED: LACTATED RINGERS SOLUTION 1,000 ML IV SCH (09:45)
[2019-09-25 10:30] VITALS: TEMP 97.7
[2019-09-25 10:31] VITALS: BP 121/62; PULSE 56
--- NOTE | 2019-09-25 18:17 | HP ---
CHIEF COMPLAINT: Major depressive disorder PCP: Dr. Concepcion Hawk, [facility] Primary psychiatrist: Dr. Singh Galloway, [facility] HISTORY OF PRESENT ILLNESS: 68 year-old male with a PMH significant for peripheral neuropathy, osteoporosis , umbilical hernia repair, and major depressive disorder. Patient first had ECT in 2010. He presents today for ECT. Recent events * None reported PAST MEDICAL HISTORY: Peripheral neuropathy Osteoporosis Major depressive disorder PAST SURGICAL HISTORY: Umbilical hernia repair Allergies No Known Allergies Allergy (Verified 09/25/19 07:12) HOME MEDICATIONS: Home Medications Medication Instructions Recorded Aripiprazole [Abilify] 10 mg PO DAILY 01/14/19 Clonazepam 1 mg PO HS 01/14/19 Lamotrigine [Lamictal] 75 mg PO DAILY 03/26/19 REVIEW OF SYSTEMS CONSTITUTIONAL: Absent: fever, chills, diaphoresis, generalized weakness, malaise, loss of appetite, weight change HEENT: Absent: rhinorrhea, nasal congestion, throat pain, throat swelling, difficulty swallowing, mouth swelling, ear pain, eye pain, visual changes CARDIOVASCULAR: Absent: chest pain, syncope, palpitations, irregular heart rate, lightheadedness , peripheral edema RESPIRATORY: Absent: cough, shortness of breath, dyspnea with exertion, orthopnea, wheezing, stridor, hemoptysis GASTROINTESTINAL: Absent: abdominal pain, abdominal distension, nausea, vomiting, diarrhea, constipation, melena, hematochezia GENITOURINARY: Absent: dysuria, frequency, urgency, hesitancy, hematuria, flank pain, genital pain MUSCULOSKELETAL: Absent: myalgia, arthralgia, joint swelling, back pain, neck pain SKIN: Absent: rash, itching, pallor HEMATOLOGIC/IMMUNOLOGIC: Absent: easy bleeding, easy bruising, lymphadenopathy, frequent infections ENDOCRINE: Absent: unexplained weight gain, unexplained weight loss, heat intolerance, cold intolerance NEUROLOGIC: Absent: headache, focal weakness or paresthesias, dizziness, unsteady gait, seizure, mental status changes, bladder or bowel incontinence PHYSICAL EXAMINATION Vital Signs - 24 hr 09/25/19 09/25/19 09/25/19 07:09 07:20 08:56 Temperature 98.5 F Pulse Rate 45 L 53 L Respiratory 18 18 17 Rate Blood Pressure 127/62 134/78 O2 Sat by Pulse 97 100 Oximetry (%) 09/25/19 09/25/19 09/25/19 09:00 09:05 09:10 Temperature Pulse Rate 51 L 49 L 57 L Respiratory 14 16 20 Rate Blood Pressure 107/56 L 111/63 112/64 O2 Sat by Pulse 98 99 100 Oximetry (%) 09/25/19 09/25/19 09/25/19 09:14 09:20 09:50 Temperature 98.5 F 97.7 F 97.7 F Pulse Rate 52 L 50 L 56 L Respiratory 15 18 18 Rate Blood Pressure 113/62 116/65 121/62 O2 Sat by Pulse 99 98 99 Oximetry (%) 09/25/19 10:00 Temperature 97.7 F Pulse Rate 56 L Respiratory 18 Rate Blood Pressure 121/62 O2 Sat by Pulse Oximetry (%) GENERAL: Awake, alert, and fully oriented, in no acute distress. HEAD: Normal with no signs of trauma. EYES: Pupils equal, round and reactive to light, sclera anicteric, conjunctiva clear. LUNGS: Breath sounds equal, clear to auscultation bilaterally. No wheezes, and no crackles. No accessory muscle use. HEART: Regular rate and rhythm, normal S1 and S2 ABDOMEN: Soft, nontender, not distended MUSCULOSKELETAL: Normal range of motion at all joints. No bony deformities or tenderness. No CVA tenderness. UPPER EXTREMITIES: 2+ pulses, warm, well-perfused. No cyanosis. No clubbing. No peripheral edema. LOWER EXTREMITIES: 2+ pulses, warm, well-perfused. No calf tenderness. No peripheral edema. NEUROLOGICAL: Cranial nerves II-XII intact. Normal speech. ASSESSMENT/PLAN: 68 year-old male with a PMH significant for peripheral neuropathy, osteoporosis , umbilical hernia repair, and major depressive disorder. He presents today for ECT. Cardiac --no cardiac history --Revised Cardiac Risk Index for Pre-Operative Risk: 0 points, 0.4% risk of major cardiac event Pulmonary --no pulmonary history Neurological --no neurological or neurosurgical history; no history of trauma Anesthesia --no reported problems with anesthesia ECT is a low risk procedure. The relative benefits of the planned procedure outweigh the relative risks for this patient at this time. Visit type - Emergency Visit Emergency Visit: No - New Patient This patient is new to me today: Yes Date on this admission: 09/25/19 - Critical Care Critical Care patient: No
== END 2019-09-25 10:00 | disposition home or self-care (01) ==
LOC: FECT 05:55
PROVIDERS: ATTEND Psychiatry & Neurology Psychiatry
PROC: GZB4ZZZ Other Electroconvulsive Therapy (ICD-10-PCS; principal; 2019-09-25 08:00)
DX: F32.9 Major depressive disorder, single episode, unspecified (principal)
CPT/HCPCS: 90870; 94760

== ENCOUNTER 2019-10-09 05:46 | Day surgery (SDC) | payer OTHER, BC ==
[2019-10-09 06:35] VITALS: BMI 30.5
[2019-10-09 08:06] VITALS: TEMP 97.5
[2019-10-09] MEDS ORDERED: ONDANSETRON 4 MG/2 ML VIAL IVPUSH PRN (09:43)
[2019-10-09] MEDS ORDERED: LACTATED RINGERS SOLUTION 1,000 ML IV SCH (09:45)
[2019-10-09 10:00] VITALS: PULSE 46
[2019-10-09 10:50] VITALS: BP 97/55
== END 2019-10-09 08:30 | disposition home or self-care (01) ==
LOC: FECT 05:46
PROVIDERS: ATTEND Psychiatry & Neurology Psychiatry
PROC: GZB4ZZZ Other Electroconvulsive Therapy (ICD-10-PCS; principal; 2019-10-09 07:15)
DX: F33.2 Major depressive disorder, recurrent severe without psychotic features (principal)
CPT/HCPCS: 90870; 94760

== ENCOUNTER 2019-10-30 05:49 | Day surgery (SDC) | payer OTHER, BC ==
[2019-10-30 07:19] VITALS: BMI 30.5
--- NOTE | 2019-10-30 07:31 | HP ---
CHIEF COMPLAINT: Major depressive disorder PCP: Dr. Concepcion Hawk, [facility] Primary psychiatrist: Dr. Singh Galloway, [facility] HISTORY OF PRESENT ILLNESS: 68 year-old male with a PMH significant for peripheral neuropathy, osteoporosis, umbilical hernia repair, and major depressive disorder. Patient first had ECT in 2010. He presents today for ECT. Recent events * None reported PAST MEDICAL HISTORY: Peripheral neuropathy Osteoporosis Major depressive disorder PAST SURGICAL HISTORY: Umbilical hernia repair Allergies No Known Allergies Allergy (Verified 09/25/19 07:12) HOME MEDICATIONS: Home Medications Medication Instructions Recorded Aripiprazole [Abilify] 10 mg PO DAILY 01/14/19 Clonazepam 1 mg PO HS 01/14/19 Lamotrigine [Lamictal] 75 mg PO DAILY 03/26/19 REVIEW OF SYSTEMS CONSTITUTIONAL: Absent: fever, chills, diaphoresis, generalized weakness, malaise, loss of appetite, weight change HEENT: Absent: rhinorrhea, nasal congestion, throat pain, throat swelling, difficulty swallowing, mouth swelling, ear pain, eye pain, visual changes CARDIOVASCULAR: Absent: chest pain, syncope, palpitations, irregular heart rate, lightheadedness, peripheral edema RESPIRATORY: Absent: cough, shortness of breath, dyspnea with exertion, orthopnea, wheezing, stridor, hemoptysis GASTROINTESTINAL: Absent: abdominal pain, abdominal distension, nausea, vomiting, diarrhea, constipation, melena, hematochezia GENITOURINARY: Absent: dysuria, frequency, urgency, hesitancy, hematuria, flank pain, genital pain MUSCULOSKELETAL: Absent: myalgia, arthralgia, joint swelling, back pain, neck pain SKIN: Absent: rash, itching, pallor HEMATOLOGIC/IMMUNOLOGIC: Absent: easy bleeding, easy bruising, lymphadenopathy, frequent infections ENDOCRINE: Absent: unexplained weight gain, unexplained weight loss, heat intolerance, cold intolerance NEUROLOGIC: Absent: headache, focal weakness or paresthesias, dizziness, unsteady gait, seizure, mental status changes, bladder or bowel incontinence PHYSICAL EXAMINATION Vital Signs - 24 hr 10/30/19 07:15 Temperature 98.0 F Pulse Rate 50 L Respiratory 18 Rate Blood Pressure 115/59 L O2 Sat by Pulse 98 Oximetry (%) GENERAL: Awake, alert, and fully oriented, in no acute distress. HEAD: Normal with no signs of trauma. EYES: Pupils equal, round and reactive to light, sclera anicteric, conjunctiva clear. LUNGS: Breath sounds equal, clear to auscultation bilaterally. No wheezes, and no crackles. No accessory muscle use. HEART: Regular rate and rhythm, normal S1 and S2 ABDOMEN: Soft, nontender, not distended MUSCULOSKELETAL: Normal range of motion at all joints. No bony deformities or tenderness. No CVA tenderness. UPPER EXTREMITIES: 2+ pulses, warm, well-perfused. No cyanosis. No clubbing. No peripheral edema. LOWER EXTREMITIES: 2+ pulses, warm, well-perfused. No calf tenderness. No peripheral edema. NEUROLOGICAL: Cranial nerves II-XII intact. Normal speech. ASSESSMENT/PLAN: 68 year-old male with a PMH significant for peripheral neuropathy, osteoporosis, umbilical hernia repair, and major depressive disorder. He presents today for ECT. Cardiac --no cardiac history --Revised Cardiac Risk Index for Pre-Operative Risk: 0 points, 0.4% risk of major cardiac event Pulmonary --no pulmonary history Neurological --no neurological or neurosurgical history; no history of trauma Anesthesia --no reported problems with anesthesia ECT is a low risk procedure. The relative benefits of the planned procedure outweigh the relative risks for this patient at this time. Visit type - Emergency Visit Emergency Visit: No - New Patient This patient is new to me today: Yes Date on this admission: 10/30/19 - Critical Care Critical Care patient: No
[2019-10-30] MEDS ORDERED: ACETAMINOPHEN 500 MG TABLET (FP) PO PRN (07:58)
[2019-10-30 09:01] VITALS: TEMP 97.6
[2019-10-30 09:38] VITALS: BP 104/64; PULSE 56
== END 2019-10-30 09:20 | disposition home or self-care (01) ==
LOC: FECT 05:49
PROVIDERS: ATTEND Psychiatry & Neurology Psychiatry
PROC: GZB4ZZZ Other Electroconvulsive Therapy (ICD-10-PCS; principal; 2019-10-30 07:45)
DX: F32.9 Major depressive disorder, single episode, unspecified (principal)
CPT/HCPCS: 90870; 94760

== ENCOUNTER 2024-12-17 09:09 | Day surgery (SDC) | payer OTHER, BC ==
[2024-12-17 09:46] VITALS: BMI 23.9
[2024-12-17] MEDS ORDERED: PROPOFOL 20 ML ONE (12:08)
[2024-12-17] MEDS ORDERED: ACETAMINOPHEN 325 MG TABLET (FP) PO ONE (13:00)
[2024-12-17 13:07] VITALS: BP 128/60; PULSE 67; RESP 16; TEMP 98.3
[2024-12-17] MEDS ORDERED: SUCCINYLCHOLINE CHLORIDE 200 MG/10 ML SYRINGE ONE (13:17)
== END 2024-12-17 13:25 | disposition home or self-care (01) ==
LOC: FECT 09:09
PROVIDERS: ATTEND Student in an Organized Health Care Education/Training Program
PROC: GZB4ZZZ Other Electroconvulsive Therapy (ICD-10-PCS; principal; 2024-12-17 12:11)
DX: F33.9 Major depressive disorder, recurrent, unspecified (principal)
CPT/HCPCS: 90870; 94760

== ENCOUNTER 2024-12-18 07:22 | Day surgery (SDC) | payer OTHER, BC ==
[2024-12-17 10:48] VITALS: BMI 23.9
[2024-12-18] MEDS ORDERED: KETOROLAC TROMETHAMINE 30 MG/1 ML VIAL ONE (08:46)
[2024-12-18] MEDS ORDERED: PROPOFOL 20 ML ONE (08:46)
[2024-12-18 10:18] VITALS: RESP 20; TEMP 97.3
[2024-12-18 10:22] VITALS: BP 116/64; PULSE 56
== END 2024-12-18 10:20 | disposition home or self-care (01) ==
LOC: FECT 07:22
PROVIDERS: ATTEND Psychiatry & Neurology Psychiatry
PROC: GZB4ZZZ Other Electroconvulsive Therapy (ICD-10-PCS; principal; 2024-12-18 08:52)
DX: F33.9 Major depressive disorder, recurrent, unspecified (principal)
CPT/HCPCS: 90870; 94760

== ENCOUNTER 2024-12-24 09:40 | Day surgery (SDC) | payer OTHER, BC ==
[2024-12-23 13:34] VITALS: BMI 23.9
[2024-12-24] MEDS ORDERED: KETAMINE HCL 100 MG/ML - 5ML VIAL ONE (12:12)
[2024-12-24 13:46] VITALS: BP 115/72; PULSE 58; RESP 16; TEMP 97.6
== END 2024-12-24 13:50 | disposition home or self-care (01) ==
LOC: FECT 09:40
PROVIDERS: ATTEND Student in an Organized Health Care Education/Training Program
PROC: GZB4ZZZ Other Electroconvulsive Therapy (ICD-10-PCS; principal; 2024-12-24 12:27)
DX: F32.A Depression, unspecified (principal)
CPT/HCPCS: 90870; 94760